=== PATIENT | female | born 1955 | race Caucasian/White ===

== ENCOUNTER 2019-04-25 11:56 | Emergency (ER) | payer OTHER, SELFPAY ==
[2019-04-25 11:57] VITALS: BP 169/86; PULSE 91; RESP 17; TEMP 36.4; O2SAT 99; BMI 35.3
[2019-04-25] MEDS: Diphth,Pertuss(Acell),Tet Vac 0.5 ML Vial IM (13:01)
--- NOTE | 2019-04-25 13:16 | ED.DCSUM_ITS ---
- ER Visit Summary Date of Service: 04/25/19 Chief Complaint: Right thumb laceration History of Present Illness: The patient is a 63 F [id number] female who cut her right thumb on a nail earlier this morning. She is unsure of her last tetanus update. She does have a history of diabetes with neuropathy. Physical Examination: Vital signs significant for blood pressure of 169/86, otherwise unremarkable. Patient sitting upright in bed no acute distress. Right upper extremity examination was a 2 cm laceration to the pad of the right thumb, worse on the radial side. She has decreased sensation distally, but has decreased sensation also noted to the ulnar side without any injury to that area. This is likely secondary to her chronic neuropathy. Cap refill is intact distally. She has good range of motion. Test Results: [] Emergency Department Course and Treatment: Digital block is performed with 4 cc 1% lidocaine. Wound is irrigated and explored. Wound does not extend deep where I would anticipate a nerve injury. Wound is closed with 4 simple entered sutures of 5-0 nylon. Dressing is applied. She is to have sutures removed in 1 week. Treatment Plan: [] Disposition: Discharge Impression: Right thumb laceration status post suture This note was generated with [employer] dictation software. It may contain incorrect words, spelling, and punctuation that were not noted in review of the chart prior to signing ED Disposition - Plan for ED Patient: Disposition: Home or Assisted Living Instructions: ED Laceration Hand Referrals: [facility] [GROUP OF PHYSICIANS] - 7 Days for suture removal
[2019-04-25 13:30] VITALS: BP 144/86; PULSE 76; RESP 18; O2SAT 99
== END 2019-04-25 13:31 | disposition home or self-care (01) ==
PROVIDERS: Emergency Provider Emergency Medicine; Family Provider Family Medicine; PCP Family Medicine
DX: S61.011A Laceration without foreign body of right thumb without damage to nail, initial encounter (principal); W45.0XXA Nail entering through skin, initial encounter; Y93.9 Activity, unspecified; Y92.9 Unspecified place or not applicable; Y99.0 Civilian activity done for income or pay
CPT/HCPCS: 12001; 90715; 99283

== ENCOUNTER 2021-10-08 05:51 | Emergency (ER) | payer OTHER, SELFPAY ==
[2021-10-08 05:52] VITALS: BP 175/80; PULSE 99; RESP 16; TEMP 36.9; O2SAT 98; BMI 36.9
--- NOTE | 2021-10-08 06:13 | CT_ITS ---
HISTORY: back pain EXAMINATION: CT Spine Lumbar W/O Contrast Injection TECHNIQUE: Helically acquired images were obtained of the lumbar spine. 2D reformats were reviewed. A radiation dose optimization technique was used for this scan. IV Contrast dosage and agent: None COMPARISON: None FINDINGS: Adequate alignment of the lumbar spine with preserved vertebral body heights. No fracture, prevertebral soft tissue swelling or suspicious osseous lesion. Degenerative facet arthropathy, endplate osteophytes and moderate degenerative disc space narrowing at L4-5 and L5-S1. There is secondary mild bilateral neural foraminal stenosis at these levels. Left paracentral/subarticular disc protrusion at L2-3 results in partial effacement of left neural foramina. Disc protrusion measures approximately 5 mm AP diameter. No abdominal aortic aneurysm or retroperitoneal adenopathy. CT/Spine Lumbar without Contrast IMPRESSION: 1. Left paracentral posterior disc protrusion at L2-3 resulting in partial effacement of left neural foramina. 2. Lower lumbar discogenic degenerative changes and facet arthropathy, as described above. Individualized dose optimization techniques were used for this CT. at 0727 Reported and signed by: Derek Mack MD Electronically Signed: Derek Mack MD at 7:26 EST Tel , Service support ,
--- NOTE | 2021-10-08 06:14 | EDS_ITS ---
HPI History of Present Illness Chief Complaint: Back Narrative Narrative: Patient is a 66-year-old female with past medical history of hypertension and diabetes as well as a herniated lumbar disc with discectomy surgery approximately 13 years ago. She states 3 to 4 weeks ago she was getting out of her car and as she went to turn and stepped out of the car felt pain in her low back. She denies any trauma prior to the pain beginning she denies any excessive activity. Patient also denies any loss of bowel or bladder control or IV drug use. Patient states that she saw her family doctor and was placed on steroids but has had no symptom improvement and therefore comes to the ER for evaluation [facility] Medical History Diabetes Sciatic leg pain Home Medications insulin lispro 100 unit/mL subcutaneous half-unit pen 5.5 unit SC QHS 05/02/19 [History Last Taken Unknown] cyclobenzaprine 10 mg UD 10/08/21 [History Last Taken Unknown] losartan 50 mg PO DAILY 10/08/21 [History Last Taken Unknown] magnesium oxide 400 mg PO DAILY 10/08/21 [History Last Taken Unknown] methocarbamol 500 mg PO Q6H PRN #56 tab 10/08/21 [Rx Last Taken Unknown] metoprolol succinate 25 mg PO DAILY 10/08/21 [History Last Taken Unknown] omeprazole 20 mg PO DAILY 10/08/21 [History Last Taken Unknown] oxycodone-acetaminophen [Percocet] 1 tab PO Q6H PRN 3 Days #12 tab 10/08/21 [Rx Last Taken Unknown] prednisone 10 mg PO DAILY 10/08/21 [History Last Taken Unknown] ropinirole [Requip] 0.5 mg PO DAILY 10/08/21 [History Last Taken Unknown] Allergy/AdvReac Type Severity Reaction Status Date / Time No Known Allergies Allergy Verified 10/08/21 06:00 Social History (Updated 05/02/19 @ 09:59 by Raffaele PINZON, JEROMY) Smoking Status: Never smoker ROS ROS ED Constitutional Constitutional ED: Denies chills or fever(s) Cardiovascular Cardiovascular: Denies chest pain Respiratory/Chest Respiratory/Chest: Denies cough or dyspnea Gastrointestinal Gastrointestinal: Denies abdominal pain, diarrhea, nausea or vomiting Genitourinary Genitourinary ED: Denies dysuria, hematuria or urinary frequency Musculoskeletal Musculoskeletal: Reports back pain; Denies myalgias Integumentary Denies rash Neurologic Neurologic: Denies headache(s) or paresthesias EXAM Physical Exam Const Vital Signs: 10/08/21 05:52 Temperature 98.4 F Temperature Source Temporal Pulse Rate 99 Respiratory Rate 16 Blood Pressure 175/80 H Blood Pressure Mean 111 Pulse Ox 98 Oxygen Delivery Method Room Air Positive well nourished, well developed and obese General Appearance ED: well developed Nutritional Appearance: obese Eyes PERRL and EOMs intact bilaterally Neck supple Resp normal respiratory effort and clear to auscultation bilaterally Cardio regular rate and regular rhythm Rate: other Other Details: Radial pulses are plus 2 out of 4 bilaterally are equal and symmetric GI normal to inspection, nondistended, normoactive bowel sounds, non-tender, non- distended and no masses GI Narrative: No voluntary guarding or rigidity no pulsatile mass Auscultation: normoactive bowel sounds Palpation: soft Back/Spine no CVA tenderness Back/Spine Narrative: No bony deformity or step-off of the thoracic or lumbar spine. However there is midline pain palpation of the mid to upper lumbar region. There is also pain with palpation in the bilateral sacroiliac joint regions. Straight leg raise is negative. No saddle anesthesia. No clonus or Babinski. Patellar reflex is plus 2 out of 4 on the right and plus 1 out of 4 on the left. Positive ELVIRA sign bilaterally. Extremity normal to inspection Neuro oriented x3 and CN's II-XII intact bilaterally Sensorium / Orientation: alert Motor Exam: strength 5/5 throughout Psych mental status grossly normal Skin no rashes or lesions noted Skin Narrative: No overlying skin changes to suggest trauma or infection MDM MDM MDM Narrative Medical decision making narrative: Patient presented to the ER afebrile. She had no report or signs of trauma prior to the pain beginning and states that it occurred when she was just standing up out of her car. Clinically this indicates that she has a lumbosacral strain. However as she does have a remote history of back surgery and midline pain with palpation I elected to perform imaging studies. I do not feel there is need for blood work or urine sample at this time based on her history and exam. Patient was medicated with IM morphine and Norflex and after this did report improvement of her pain. CT scan revealed chronic changes without obvious nerve impingement. Therefore at this time patient can be placed on symptomatic medications and follow-up with orthopedics for repeat evaluation Radiography Diagnostic Testing: Clinical Impression(s) from Imaging Studies Lumbar Spine CT 10/08/21 06:13 IMPRESSION: 1. Left paracentral posterior disc protrusion at L2-3 resulting in partial effacement of left neural foramina. 2. Lower lumbar discogenic degenerative changes and facet arthropathy, as described above. Individualized dose optimization techniques were used for this CT. at 0727 Reported and signed by: Derek Mack MD Electronically Signed: Derek Mack MD at 7:26 EST Tel , Service support , Discharge Plan Triage Chief Complaint: Back ED Provider: Clint Knight Dx/Rx/DC Orders Clinical Impression: Degenerative disc disease, Low back pain, Lumbar herniated disc Instructions: ED Degenerative Disk Disease Prescriptions: New oxycodone-acetaminophen [Percocet] 5-325 mg tablet 1 tab PO Q6H PRN (Reason: pain) 3 Days Qty: 12 RF: 0 methocarbamol 500 mg tablet 500 mg PO Q6H PRN (Reason: Muscle pain/spasm) Qty: 56 RF: 1 No Action Humalog David KwikPen U-100 100 unit/mL insulin pen, half-unit 5.5 unit SC QHS RF: 0 cyclobenzaprine 10 mg tablet 10 mg UD RF: 0 prednisone 10 mg Tablet 10 mg PO DAILY RF: 0 losartan 50 mg Tablet 50 mg PO DAILY RF: 0 ropinirole [Requip] 0.5 mg Tablet 0.5 mg PO DAILY RF: 0 omeprazole 20 mg Capsule,Delayed Release(Dr/Ec) 20 mg PO DAILY RF: 0 metoprolol succinate 25 mg Tablet Extended Release 24 Hr 25 mg PO DAILY RF: 0 magnesium oxide 400 mg magnesium Tablet 400 mg PO DAILY RF: 0 Stand Alone Forms: ED Work / School Excuse Primary Care Provider: Derek Grayson Referrals: Derek Grayson MD [Primary Care Provider] - Gustabo Chiu DO [STAFF PHYSICIAN] - 1 Week if not improving Disposition Disposition: Home, Self Care
[2021-10-08] MEDS: Ondansetron ODT 4 MG Tablet PO (06:34)
[2021-10-08] MEDS: Morphine 4 MG/ML Syringe 8 MG IM (06:34)
[2021-10-08] MEDS: Orphenadrine 60 MG/2 ML Ampul IM (06:34)
[2021-10-08 07:52] VITALS: BP 136/74; PULSE 85; RESP 16; O2SAT 98
== END 2021-10-08 07:59 | disposition home or self-care (01) ==
PROVIDERS: Emergency Provider Emergency Medicine; PCP Family Medicine
DX: M51.36 Other intervertebral disc degeneration, lumbar region (principal); M51.26 Other intervertebral disc displacement, lumbar region; E66.9 Obesity, unspecified; I10 Essential (primary) hypertension; Z79.899 Other long term (current) drug therapy
CPT/HCPCS: 72131; 96372; 99282

== ENCOUNTER 2023-04-10 13:46 | Emergency (ER) | payer OTHER, SELFPAY ==
[2023-04-10 13:47] VITALS: BP 151/73; PULSE 108; RESP 14; TEMP 36.9; O2SAT 98
--- NOTE | 2023-04-10 14:15 | RAD_ITS ---
STUDY: XR Ankle Min 3 Views REASON FOR EXAM: Female, 67 years old. ANKLE PAIN TECHNIQUE: XR Ankle Min 3 Views LEFT COMPARISON: None. FINDINGS: Normal visualized distal tibia and fibula. Normal medial and lateral malleoli. Normal tibiotalar articulation and ankle mortise. There is an enthesophyte involving the posterior superior calcaneus at the site of insertion of the Achilles tendon. The visualized subtalar, talonavicular, calcaneocuboid and tarsal articulations are normal. There is a plantar calcaneal spur. There is soft tissue swelling around the ankle. RAD/Ankle min 3 Views IMPRESSION: There is soft tissue swelling. Electronically Signed: Zack Richmond MD at 14:33 EDT ,
[2023-04-10 16:48] VITALS: BMI 37.3
--- NOTE | 2023-04-10 16:56 | EX.ED.DYSGE1 ---
HPI <JEROMY Jung - Last Filed: 04/10/23 18:14> History of Present Illness Chief Complaint: Lower Extremity Injury Narrative Narrative: Patient presenting today due to pain in her left ankle. 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 When she tried to get off the wagon, she slipped down the steps and injured her left ankle. She is unsure if she everted or inverted the ankle. She denies other injury and did not hit her head, there was no loss of consciousness. PFSH <JEROMY Jung - Last Filed: 04/10/23 18:14> [facility] Medical History Diabetes Sciatic leg pain Home Medications insulin lispro 100 unit/mL subcutaneous half-unit pen (Humalog David KwikPen (U-100)) 5.5 unit subcut QHS 05/02/19 [History Last Taken Unknown] cyclobenzaprine 10 mg tablet 10 mg UD 10/08/21 [History Last Taken Unknown] losartan 50 mg tablet 50 mg PO DAILY 10/08/21 [History Last Taken Unknown] magnesium oxide 400 mg PO DAILY 10/08/21 [History Last Taken Unknown] methocarbamol 500 mg tablet 500 mg PO Q6H PRN Muscle pain/spasm #56 tabs 10/08/21 [Rx Last Taken Unknown] metoprolol succinate 25 mg tablet,extended release 24 hr 25 mg PO DAILY 10/08/21 [History Last Taken Unknown] omeprazole 20 mg capsule,delayed release 20 mg PO DAILY 10/08/21 [History Last Taken Unknown] oxycodone-acetaminophen 5 mg-325 mg tablet (Percocet) 1 tab PO Q6H PRN pain 3 days #12 tabs 10/08/21 [Rx Last Taken Unknown] prednisone 10 mg tablet 10 mg PO DAILY 10/08/21 [History Last Taken Unknown] ropinirole 0.5 mg tablet 0.5 mg PO DAILY 10/08/21 [History Last Taken Unknown] Allergy/AdvReac Type Severity Reaction Status Date / Time No Known Allergies Allergy Verified 04/10/23 16:44 Social History Smoking Status: Never smoker ROS <JEROMY Jung - Last Filed: 04/10/23 18:14> ROS ED Constitutional Constitutional ED: Denies chills or fever(s) Cardiovascular Cardiovascular: Denies chest pain Respiratory/Chest Respiratory/Chest: Denies cough or dyspnea Gastrointestinal Gastrointestinal: Denies abdominal pain, nausea or vomiting Musculoskeletal Musculoskeletal: Reports arthralgias and myalgias; Denies back pain or neck pain Integumentary Denies abscess, Abrasions or rash Neurologic Neurologic: Denies weakness EXAM <JEROMY Jung - Last Filed: 04/10/23 18:14> Physical Exam Const Vital Signs: 04/10/23 13:47 Temperature 98.4 F Temperature Source Temporal Pulse Rate 108 H Respiratory Rate 14 Blood Pressure 151/73 H Blood Pressure Mean 99 Pulse Ox 98 Oxygen Delivery Method Room Air Positive well nourished, well developed and no apparent distress General Appearance ED: well developed HEENT Reports normocephalic and head/scalp atraumatic Mouth ED: Yes moist mucous membranes normal Eyes PERRL and EOMs intact bilaterally Neck full ROM and supple Chest Wall inspection of chest normal Resp normal respiratory effort and clear to auscultation bilaterally Cardio regular rate and regular rhythm GI soft to palpation, non-tender, non-distended and no masses Back/Spine normal ROM and normal to inspection Extremity normal to inspection and full ROM Extremity Narrative: Left lateral malleolus swollen and tender to palpation, no ecchymosis or erythema, DP pulses 2+ and equal bilaterally, good capillary refill, sensation intact. Neuro oriented x3, CN's II-XII intact bilaterally, moves all extremities, no focal motor deficits and no sensory deficits noted Sensorium / Orientation: awake and alert Psych mental status grossly normal and thought process normal Skin no rashes or lesions noted and no wounds <Dr. Kamlesh Connelly MD - Last Filed: 04/10/23 18:06> Physical Exam Const Vital Signs: 04/10/23 13:47 Temperature 98.4 F Temperature Source Temporal Pulse Rate 108 H Respiratory Rate 14 Blood Pressure 151/73 H Blood Pressure Mean 99 Pulse Ox 98 Oxygen Delivery Method Room Air MDM <JEROMY Jung - Last Filed: 04/10/23 18:14> MDM MDM Narrative Medical decision making narrative: Patient presenting today due to pain in her left ankle after slipping down the steps on a wagon and twisting her ankle. She is unable to bear weight. she is neurovascularly intact. There is tenderness and edema to the lateral malleolus. X-ray obtained to rule out fracture/ dislocation and is negative. She already has crutches, she will be given an Aircast, she is to alternate Tylenol and ibuprofen for pain, she has been given RICE instructions and she will be discharged home in stable condition. She is comfortable with plan. Radiography X-Ray: Read by ED Physician and Read by Radiologist Diagnostic Testing: Clinical Impression(s) from Imaging Studies Ankle X-Ray 04/10/23 14:15 IMPRESSION: There is soft tissue swelling. Electronically Signed: Zack Richmond MD at 14:33 EDT , <Dr. Kamlesh Connelly MD - Last Filed: 04/10/23 18:06> MDM Radiography Diagnostic Testing: Clinical Impression(s) from Imaging Studies Ankle X-Ray 04/10/23 14:15 IMPRESSION: There is soft tissue swelling. Electronically Signed: Zack Richmond MD at 14:33 EDT , Treatment and Re-Evaluation Comments:: Seen and evaluated independently and in conjunction with physician department assistant. Agree with notes above unless documented otherwise. Twisted left ankle difficulty bearing weight on it. On exam tender left lateral malleolus with swelling, no deformities, nontender medial malleolus, base of fifth metatarsal, proximal fibula. Joint stable. X-rays 3 views left ankle reviewed by myself, negative for any acute fracture or dislocation. Radiology in agreement. Supportive care treat like a sprain with an Aircast she has crutches already. Discharge Plan Triage Chief Complaint: Lower Extremity Injury ED Midlevel Provider: Sunita Quarles ED Provider: Kamlesh Connelly Dx/Rx/DC Orders Clinical Impression: Ankle sprain Instructions: ED Ankle Sprain (Adult) Prescriptions: No Action Humalog David KwikPen U-100 100 unit/mL insulin pen, half-unit 5.5 unit SC QHS cyclobenzaprine 10 mg tablet 10 mg UD Rx Instructions: tapering 40mg x 3 days, 30mg x 3 days, 20mg x 3 days and 10mg x 3 days prednisone 10 mg Tablet 10 mg PO DAILY losartan 50 mg Tablet 50 mg PO DAILY ropinirole [Requip] 0.5 mg Tablet 0.5 mg PO DAILY omeprazole 20 mg Capsule,Delayed Release(Dr/Ec) 20 mg PO DAILY metoprolol succinate 25 mg Tablet Extended Release 24 Hr 25 mg PO DAILY magnesium oxide 400 mg magnesium Tablet 400 mg PO DAILY oxycodone-acetaminophen [Percocet] 5-325 mg tablet 1 tab PO Q6H PRN (Reason: pain) 3 Days Qty: 12 0RF methocarbamol 500 mg tablet 500 mg PO Q6H PRN (Reason: Muscle pain/spasm) Qty: 56 1RF Rx Instructions: 1 to 2 pills by mouth 4 times daily as needed muscle pain/spasm Primary Care Provider: Derek Grayson Referrals: Derek Grayson MD [Primary Care Provider] - 3-5 Days Activity Restrictions/Additional Instructions: Rest your ankle, keep it elevated when you can, ice it several times a day for 10 to 15 minutes for the next few days, alternate Tylenol and ibuprofen for pain. Disposition Disposition: Home, Self Care
== END 2023-04-10 18:14 | disposition home or self-care (01) ==
PROVIDERS: Emergency Provider Emergency Medicine; PCP Family Medicine; Visit Provider Emergency Medicine
DX: S93.402A Sprain of unspecified ligament of left ankle, initial encounter (principal); W17.89XA Other fall from one level to another, initial encounter
CPT/HCPCS: 73610; 99283

== ENCOUNTER 2025-03-23 15:26 | Emergency (ER) | payer MEDICARE, SELFPAY ==
[2025-03-23 15:27] VITALS: BP 156/133; PULSE 85; RESP 16; TEMP 36.6; O2SAT 100; BMI 40.6
--- NOTE | 2025-03-23 15:29 | RAD_ITS ---
EXAM: XR Right Humerus, 2 or More Views CLINICAL INDICATION: PAIN TECHNIQUE: Frontal and lateral views of the right humerus. COMPARISON: No relevant prior studies available. FINDINGS: BONES/JOINTS: Unremarkable. No acute fracture. No dislocation. SOFT TISSUES: Unremarkable. RAD/Humerus min 2 Views IMPRESSION: No acute fracture. [facility]
--- NOTE | 2025-03-23 15:29 | RAD_ITS ---
PROCEDURE: SHOULDER MIN 2 VIEWS 03/23/2025 REASON FOR EXAM: PAIN TECHNIQUE: 4 of the right shoulder COMPARISON: No relevant prior FINDINGS: Bones: No fractures. No other osseous abnormalities. Joints: Degenerative changes of the acromioclavicular joint. Soft tissues: Unremarkable. Other: Unremarkable. RAD/Shoulder min 2 Views IMPRESSION: No acute osseous abnormalities. Degenerative change of the acromioclavicular joint. Reading Location: [place]
--- NOTE | 2025-03-23 16:17 | EDS_ITS ---
HPI History of Present Illness Chief Complaint: Upper Extremity Injury Detail of Chief Complaint: Right arm pain Informant: patient Narrative Narrative: Patient presents to the emergency department complaint of right arm pain. She states that she has had some discomfort for several months intermittently in that right arm. This morning she was wiping herself after using the restroom and felt a pop in the anterior upper arm. Pain now with range of motion. She is right-hand dominant. [facility] Medical History Diabetes Sciatic leg pain Home Medications ?Medication ?Instructions ?Recorded ?Last Taken ?Type insulin lispro 100 unit/mL 5.5 unit subcut QHS 9 Unknown History subcutaneous half-unit pen (Humalog David KwikPen (U-100)) cyclobenzaprine 10 mg tablet 10 mg UD 10/08/21 Unknown History losartan 50 mg tablet 50 mg PO DAILY 10/08/21 Unkn own History magnesium oxide 400 mg PO DAILY 10/08/21 Unk nown History methocarbamol 500 mg tablet 500 mg PO Q6H PRN Muscle 1 12/08/20 Unknown Rx pain/spasm #56 tabs metoprolol succinate 25 mg 25 mg PO DAILY 10/08/21 Unk nown History tablet,extended release 24 hr omeprazole 20 mg capsule,delayed 20 mg PO DAILY Unknown History release oxycodone-acetaminophen 5 mg-325 1 tab PO Q6H PRN pain 3 days #12 10/08/21 Unknown Rx mg tablet (Percocet) tabs prednisone 10 mg tablet 10 mg PO DAILY 10/08/21 Unkn own History ropinirole 0.5 mg tablet 0.5 mg PO DAILY 10/08/21 Unk nown History Allergy/AdvReac Type Severity Reaction Status Date / Time No Known Allergies Allergy Verified 03/23/25 15:28 Surgical History (Updated 03/23/25 @ 16:32 by Danette Murdock) Hip joint replacement status Social History Smoking Status: Never smoker ROS ROS ED Review of Systems ROS Unobtainable: other Constitutional Constitutional ED: Reports lethargy; Denies chills, fever(s), sweats or weight loss Eyes Eyes: Denies blurry vision, change in vision or diplopia ENT ENT ED: Denies rhinorrhea or sore throat Cardiovascular Cardiovascular: Denies chest pain, orthopnea or racing heartbeat Respiratory/Chest Respiratory/Chest: Denies cough, dyspnea, dyspnea on exertion, orthopnea or sputum Gastrointestinal Gastrointestinal: Denies abdominal pain, diarrhea, nausea or vomiting Genitourinary Genitourinary ED: Denies dysuria, hematuria or urinary frequency Musculoskeletal Musculoskeletal: Reports other Details: Right arm pain ; Denies arthralgias, back pain, myalgias or neck pain Integumentary Denies abscess, Abrasions or rash Neurologic Neurologic: Denies headache(s) or weakness Psychiatric Psychiatric: Denies anxiety, depression or suicidal thoughts Endocrine Endocrinology: Denies polydipsia, polyphagia or polyuria Hematologic/Lymphatic Hematologic/Lymphatic: Denies easy bleeding, easy bruising or lymphadenopathy Allergic/Immunologic Allergic/Immunologic ED: Denies mouth swelling, tongue swelling or urticaria EXAM Physical Exam Const Vital Signs: 03/23/25 15:27 Temperature 97.9 F Temperature Source Temporal Pulse Rate 85 Respiratory Rate 16 Blood Pressure 156/133 H Blood Pressure Mean 140 Pulse Ox 100 Oxygen Delivery Method Room Air Positive well nourished and well developed General Appearance ED: well developed and NAD HEENT Reports TM's clear and moist mucous membranes normocephalic and atraumatic; Negative for trauma or tenderness Tympanic Membrane ED: Yes TM's clear Eyes PERRL and EOMs intact bilaterally General Eye ED: Negative for pale conjunctiva or scleral icterus Neck no lymphadenopathy, supple and no JVD General: Negative for tenderness Chest Wall inspection of chest normal and palpation of chest normal Chest: Negative for tenderness Resp normal respiratory effort and clear to auscultation bilaterally Effort and Inspection: Negative for respiratory distress or pain with movement Auscultation: Negative for rhonchi, wheezes or diminished lung sounds Cardio regular rate, regular rhythm, S1 normal heart sound, S2 normal heart sound and no murmurs Peripheral Pulses: pulses 2+ throughout GI normal to inspection, nondistended, normoactive bowel sounds, soft to palpation, non-tender, non-distended and no masses Back/Spine no CVA tenderness and no thoracic nor lumbar tenderness Extremity Extremity Narrative: Right arm-patient has diffuse tenderness palpation over the bicep. The bicep tendon is intact with attachment to the forearm. No soft tissue swelling noted. There is no ecchymosis or bruising. She is neurovascular intact distally. No significant tenderness about the shoulder joint at the glenohumeral joint. She has good range of motion at the glenohumeral joint. No bony tenderness on exam to the elbow. General Extremety ED: Negative for edema General Extremity: Negative for edema Neuro oriented x3, CN's II-XII intact bilaterally, no sensory deficits noted and gait normal Sensorium / Orientation: awake, alert, oriented to person, oriented to place and oriented to time Motor Exam: strength 5/5 throughout and strength abnormal Psych mental status grossly normal Skin no rashes or lesions noted and no wounds MDM MDM MDM Narrative Medical decision making narrative: Patient presents with pain to the right upper arm. Nursing staff performed protocol x-rays of the right shoulder and humerus which were negative for fracture or acute abnormality. This point suspect likely soft tissue injury and possible bicep strain. Will give a sling for comfort. She is instructed to use ibuprofen or Tylenol for discomfort. Patient advised to use a ibuprofen or Tylenol for discomfort. She is to follow-up with her orthopedic surgeon Dr. Ibarra within the next 5 to 7 days. Radiography Diagnostic Testing: Clinical Impression(s) from Imaging Studies Humerus X-Ray 03/23/25 15:29 IMPRESSION: No acute fracture. [facility] Shoulder X-Ray 03/23/25 15:29 IMPRESSION: No acute osseous abnormalities. Degenerative change of the acromioclavicular joint. Reading Location: [facility] 2 view x-rays of the right humerus obtained interpreted by myself as no evidence of fracture or dislocation. Radiology in agreement. 2 view x-rays of the right shoulder obtained interpreted by myself no evidence of fracture or dislocation and radiology was in agreement. They also noted degenerative changes at the acromioclavicular joint Discharge Plan Triage Chief Complaint: Upper Extremity Injury ED Provider: Lucy Calhoun Dx/Rx/DC Orders Clinical Impression: Muscle strain, Biceps strain Instructions: ED Muscle Strain, Extremity Prescriptions: No Action Humalog David KwikPen U-100 100 unit/mL insulin pen, half-unit 5.5 unit SC QHS cyclobenzaprine 10 mg tablet 10 mg UD Rx Instructions: tapering 40mg x 3 days, 30mg x 3 days, 20mg x 3 days and 10mg x 3 days prednisone 10 mg Tablet 10 mg PO DAILY losartan 50 mg Tablet 50 mg PO DAILY ropinirole [Requip] 0.5 mg Tablet 0.5 mg PO DAILY omeprazole 20 mg Capsule,Delayed Release(Dr/Ec) 20 mg PO DAILY metoprolol succinate 25 mg Tablet Extended Release 24 Hr 25 mg PO DAILY magnesium oxide 400 mg magnesium Tablet 400 mg PO DAILY oxycodone-acetaminophen [Percocet] 5-325 mg tablet 1 tab PO Q6H PRN (Reason: pain) 3 Days Qty: 12 0RF methocarbamol 500 mg tablet 500 mg PO Q6H PRN (Reason: Muscle pain/spasm) Qty: 56 1RF Rx Instructions: 1 to 2 pills by mouth 4 times daily as needed muscle pain/spasm Primary Care Provider: Derek Grayson Referrals: Derek Grayson MD [Primary Care Provider] - Activity Restrictions/Additional Instructions: Follow-up with Dr. Ibarra within the next 5 to 7 days. Print Language: Marshallese Disposition Disposition: Home, Self Care
[2025-03-23 16:33] VITALS: BP 135/63; PULSE 71; RESP 95; TEMP 36.7; O2SAT 96
== END 2025-03-23 16:37 | disposition home or self-care (01) ==
PROVIDERS: Emergency Provider Emergency Medicine; PCP Family Medicine; Visit Provider Emergency Medicine
DX: S46.211A Strain of muscle, fascia and tendon of other parts of biceps, right arm, initial encounter (principal); E11.9 Type 2 diabetes mellitus without complications; Z79.4 Long term (current) use of insulin; X58.XXXA Exposure to other specified factors, initial encounter
CPT/HCPCS: 73030; 73060; 99283